=== PATIENT | female | born 1985 | race Caucasian/White ===

== ENCOUNTER → 2017-03-14 15:30 | Outpatient (CLI) | payer BC, SELFPAY ==
--- NOTE | 2017-03-14 15:39 | US_ITS ---
US thyroid HISTORY: ITS.REASON: ENLARGED THYROID ORDERING PHYSICIAN: Rosaline Joseph PATIENT AGE: 31 years COMPARISON: None FINDINGS: Right lobe: The right lobe is enlarged and is heterogeneous in nature measuring 4.8 x 2.5 x 2.2 cm. There is a 1.8 cm solid-appearing nodule in the lower pole on the right slightly hyperechoic. Anterior to the right lobe there is a 2.6 x 1 cm area of decreased echogenicity lobular also in nature with peripheral blood flow and may be related to an enlarged lymph node. Left lobe: Enlarged at 4.7 x 2.5 x 2.4 cm with heterogeneous echogenicity. A 1.7 x 0.8 cm ill-defined nodules present in the mid pole of the left lobe with mixed echogenicity. In the upper pole there is a 1.2 cm isoechoic nodule Lobular 1.6 cm isoechoic area noted anterior to the left lobe and may be due to enlarged lymph node. The isthmus is somewhat thickened at 7 mm. IMPRESSION: Multinodular goiter as detailed above. There are bilateral thyroid nodules measuring up to 1.8 cm on the right and 7 cm on the left with probable enlarged lymph nodes inferior to the thyroid gland on both sides. Consider CT of the neck for further evaluation. Probably best to perform without contrast in case the patient would need radioactive iodine for diagnosis or treatment in the near future.
== END ==
PROVIDERS: Family Provider Nurse Practitioner Family; PCP Nurse Practitioner Family; Visit Provider Nurse Practitioner
DX: E04.9 Nontoxic goiter, unspecified (principal)
CPT/HCPCS: 76536

== ENCOUNTER → 2017-03-23 12:43 | Outpatient (CLI) | payer BC, SELFPAY ==
--- NOTE | 2017-03-23 12:47 | CT_ITS ---
CT soft tissue neck wo con INDICATION: Adenopathy, thyroid nodules, goiter, abnormal ultrasound ITS.REASON: THYROID NODULE,GOITER ORDERING PHYSICIAN: Rosaline Joseph PATIENT AGE: 31 years COMPARISON: Ultrasound of 03/14/2017 TECHNIQUE: Axial images are obtained without contrast. Sagittal and coronal reformatted images are reviewed as well. FINDINGS: There are scattered small lymph nodes along the inferior aspect of the parotid gland on both sides. There are scattered small cervical lymph nodes within the deep cervical chains on both sides and deep to the sternocleidomastoid bilaterally. The nodes measure up to 2 x 1.2 cm on the right and 1.8 x 1.3 cm on the left. Mild enlargement of the thyroid gland involving both lobes. The nodules are better delineated on ultrasound. There are small lymph nodes present in the superior mediastinum as seen on the ultrasound. These nodes measure up to 1.4 x 1.2 cm. There are multiple small nodes present. There is moderate mucosal thickening of the right maxillary sinus inferiorly and mild mucosal thickening left maxillary sinus. Mild ethmoid sinus mucosal thickening also noted. IMPRESSION: 1. Mild cervical and superior mediastinal adenopathy as described above. 2. Enlarged thyroid gland. 3. Paranasal sinus disease
== END ==
PROVIDERS: Family Provider Nurse Practitioner Family; PCP Nurse Practitioner Family; Visit Provider Nurse Practitioner
DX: E04.1 Nontoxic single thyroid nodule (principal); E04.9 Nontoxic goiter, unspecified
CPT/HCPCS: 70490

== ENCOUNTER → 2017-05-04 08:09 | Outpatient (CLI) | payer BC, SELFPAY ==
[2017-05-06 17:44] LABS: Calcitonin <2.0 pg/mL (0.0-5.0)
== END ==
PROVIDERS: Visit Provider Otolaryngology
DX: E04.9 Nontoxic goiter, unspecified (principal)
CPT/HCPCS: 36415; 82308

== ENCOUNTER → 2017-05-12 12:36 | Outpatient (CLI) | payer BC, SELFPAY ==
--- NOTE | 2017-05-12 12:41 | US_ITS ---
US biopsy guidance, US organ site (thyroid), US thyroid HISTORY: Dominant thyroid nodule with mild cervical adenopathy ITS.REASON: thyroid nodule- dom left 1.5cm ORDERING PHYSICIAN: Duarte Rosario MD PATIENT AGE: 31 years COMPARISON: Ultrasound 03/14/2017 Prebiopsy ultrasound: 1.4 cm slightly hypoechoic nodule with questionable calcifications noted in the mid pole on the left TECHNIQUE: Following obtaining informed consent, using aseptic technique and local anesthesia with buffered lidocaine, fine-needle aspiration was performed of the nodule of interest using sonographic guidance. 3 passes were made into the nodule with a 25-gauge needle. Specimen was given to cytology. The patient tolerated the procedure well without evidence of immediate complications and left the ultrasound suite in stable condition. CYTOLOGY:Pending IMPRESSION: Uneventful ultrasound-guided fine-needle aspiration of left lobe thyroid gland with cytology pending
== END ==
PROVIDERS: Family Provider Nurse Practitioner Family; PCP Nurse Practitioner Family; Visit Provider Otolaryngology
DX: E04.9 Nontoxic goiter, unspecified (principal)
CPT/HCPCS: 10022; 76536; 76942

== ENCOUNTER → 2017-08-22 16:18 | Outpatient (CLI) | payer BC, SELFPAY ==
--- NOTE | 2017-08-22 16:29 | XR_ITS ---
XR foot LT min 3V HISTORY: ITS.REASON: LEFT HEEL PAIN ORDERING PHYSICIAN: Rosaline Joseph PATIENT AGE: 31 years COMPARISON: None FINDINGS: No fracture or dislocation. No lytic or blastic change. There is normal mineralization.. The joint spaces are well-preserved. No significant degenerative/arthritic changes. No erosive changes evident. There is a small calcaneal nonspecific measuring 7 mm. IMPRESSION: Negative, no acute finding
== END ==
PROVIDERS: PCP Family Medicine; Visit Provider Nurse Practitioner
DX: M79.672 Pain in left foot (principal)
CPT/HCPCS: 73630

== ENCOUNTER → 2017-12-24 10:40 | Outpatient (CLI) | payer BC, SELFPAY ==
--- NOTE | 2017-12-24 10:52 | XR_ITS ---
EXAM: XR lumbar spine min 4V HISTORY: ITS.REASON: ACUTE RIGHT SIDED LOW BACK PAIN WITH RIGHT SIDED SCIATICA ORDERING PHYSICIAN: Di Lopez PATIENT AGE: 32 years COMPARISON: None FINDINGS: Normal alignment. No fracture or dislocation. No lytic or blastic change. There is decrease in the L5-S1 disc space consistent with degenerative disc disease. Total left hip prosthesis is present. The SI joints have an unremarkable appearance. IMPRESSION: Mild degenerative disc disease L5-S1
== END ==
PROVIDERS: PCP Nurse Practitioner Family; Visit Provider Nurse Practitioner Family
DX: M54.41 Lumbago with sciatica, right side (principal)
CPT/HCPCS: 72110

== ENCOUNTER → 2018-01-20 15:46 | Outpatient (CLI) | payer BC, SELFPAY ==
--- NOTE | 2018-01-20 15:51 | MR_ITS ---
MR lumbar spine wo con HISTORY: Right-sided low back pain with sciatica going down the leg with numbness and tingling ITS.REASON: ACUTE RIGHT SIDED LOW BACK PAIN WITH SCIATICA ORDERING PHYSICIAN: Di Lopez PATIENT AGE: 32 years Comparison: 12/24/2017 TECHNIQUE: Standard multiplanar multiecho sequences are performed without contrast. 3-D MIP and myelographic images are also rendered and reviewed FINDINGS: There is normal alignment. The spinal cord ends at the T12-L1 level. L1-L2, L2-L3, L3-L4, and L4-L5 have an unremarkable appearance. There is some minimal facet and ligamentum flavum hypertrophy at L3-L4 and L4-L5. There is degenerative disc disease with decrease in the disc space at L5-S1 with bulging disc and a medium-sized right paracentral disc herniation with superior extrusion. Extruded portion of the disc measures 13 mm and is extruded superiorly compressing the S1 and S2 nerve root on the right also abutting the medial aspect of the left S1 nerve root. There is resultant canal stenosis from the herniated disc. IMPRESSION: Degenerative disc disease at L5-S1 L5-S1 with bulging disc and a medium-sized right paracentral disc herniation with superior extrusion. Extruded portion of the disc measures 13 mm and is extruded superiorly compressing the S1 and S2 nerve root on the right also abutting the medial aspect of the left S1 nerve root. There is resultant canal stenosis from the herniated disc.
== END ==
PROVIDERS: PCP Nurse Practitioner Family; Visit Provider Nurse Practitioner Family
DX: M54.41 Lumbago with sciatica, right side (principal)
CPT/HCPCS: 72148; 76376

== ENCOUNTER → 2018-02-07 08:24 | Outpatient (CLI) | payer BC, SELFPAY | PROVIDERS: PCP Nurse Practitioner Family; Visit Provider Orthopaedic Surgery | DX: Z01.818 Encounter for other preprocedural examination (principal); M54.5 Low back pain | CPT/HCPCS: 93005 ==

== ENCOUNTER → 2019-08-22 09:05 | Outpatient (CLI) | payer BC, SELFPAY ==
--- NOTE | 2019-08-22 09:14 | XR_ITS ---
PROCEDURE: XR HIP LT 2-3V W/PELVIS CLINICAL INDICATION: left HIP PAIN COMPARISON: [id number] HIP LT 2-3V W/PELVIS IF PERFOR from 07/11/[id number] soft tissue neck wo con from 03/23/2017 FINDINGS: Prior total hip replacement on the left with good alignment. There is some sclerosis at the acetabular roof and along the left aspect of the ilium inferiorly. There is a bony defect involving the left ilium laterally and could be due to prior bone harvesting site. Not significantly changed. There are minimal osteoarthritic changes of the right hip. No fracture or dislocation. Essure devices are noted IMPRESSION: Prior left hip replacement with chronic changes. No change with no acute finding Dictated by: Milton Sparrow MD 08/22/2019 14:58 Electronically signed by Milton Sparrow MD in [place] 08/22/2019 14:58
== END ==
PROVIDERS: PCP Nurse Practitioner; Visit Provider Nurse Practitioner
DX: M25.551 Pain in right hip (principal)
CPT/HCPCS: 73502

== ENCOUNTER → 2019-09-03 08:47 | Outpatient (CLI) | payer BC, SELFPAY ==
--- NOTE | 2019-09-03 08:53 | NM_ITS ---
PROCEDURE: NM BONE 3 PHASE CLINICAL INDICATION: LT HIP PAIN Left hip pain, status post hip replacement COMPARISON: XR HIP LT 2-3V W/PELVIS from 08/22/2019 TECHNIQUE: Dose: 25.4 mCi technetium MDP FINDINGS: Blood flow images show fairly symmetric activity to both hips with only slight increase in blood flow to the left hip on the composite blood flow view. Blood pool images show symmetric activity to both sides. Delayed images show show photopenic area in the region of the left femoral head and neck from the underlying metallic prosthesis. There is some increased activity in the subtrochanteric region on the AP images. This is not as intense as 1 would expect for underlying osteomyelitis and may only be postsurgical in nature. IMPRESSION: Status post left hip replacement. No convincing evidence of underlying infection or loosening Dictated by: Milton Sparrow MD 09/04/2019 10:16 Electronically signed by Milton Sparrow MD in [facility] 09/04/2019 10:16
--- NOTE | 2019-09-03 09:34 | HMH.ITSHM ---
Current Home Medications as stated by this patient Rosa Montes or field representative/health education. []meloxicam
== END ==
PROVIDERS: PCP Nurse Practitioner; Visit Provider Physician Assistant Surgical
DX: M25.552 Pain in left hip (principal); Z96.642 Presence of left artificial hip joint
CPT/HCPCS: 78315; A9503

== ENCOUNTER 2019-10-31 15:30 | Outpatient (RCR) | payer BC, SELFPAY ==
--- NOTE | 2019-09-05 09:45 | HMH.PTOPEV ---
PT Outpatient Evaluation Rehab PT Outpatient Evaluation Start: 09/05/19 09:05 Freq: Status: Active Protocol: Document 09/05/19 09:06 HARVEYMARCIAL (Rec: 09/05/19 09:45 FAISAL [id number]) Electronically Signed By Butch Gonzalez PT 09/05/19 09:06 Outpatient Therapy Subjective History Subjective History This is the initial Physical Therapy evaluation for Rosa Montes. Pt is a 33 y/o female referred to PT for c/o L hip pain and buckling . 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 Pt reports intermittant issues of hip pain and snapping hip which have resolved on their own normally. Pt reprots this bout of hip issues began ~ 1 month ago w/ insidious onset. Pt reports her L hip and lower extremity have begun gicing out and buckling. Pt also reports that she will get symptoms of paresthesia in leg prior to buckling. Pt does not recognize any aggravating factors, or this that cause buckling to happen. Pt reports this happens randomnly. Chief Complaint Pain,Gives out/Unstable, Paresthesia,Weakness Symptom Type Throb,Sharp,Numbness,Tingling Symptoms Relieved By Nothing Symptoms Aggravated By Physical Activity,Twisting Prior Functional Limitations None Level of pain today (0-10) 0 Pain scale - at its best (0-10) 0 Pain scale - at its worst (0-10) 8 Hip/Knee Eval Gait Observation General Gait Pattern Observation Antalgic Gait Palpation Tenderness left Hip Palpation Findings Tenderness MMT Hip Flexion Strength Grade 4- Good- Hip Abduction Strength Grade 4- Good- Hip Adduction Strength Grade 4- Good- Hip Extension Strength Grade 4- Good- Hip External Rotation Strength Grade 4- Good- Hip Internal Rotation Strength Grade 4- Good- Knee Strength Reason Not Measured WFL Special Tests Hip Brett Test Positive Left Hip Piriformis Test Positive Left Outpatient Therapy Assessment Impairments Problems/Impairmments Palpation Tenderness,Impaired Walking,Impaired Squatting,
== END 2019-10-31 15:35 | disposition home or self-care (01) ==
LOC: PT 15:30
PROVIDERS: PCP Nurse Practitioner; Visit Provider Nurse Practitioner
DX: M25.552 Pain in left hip (principal)
CPT/HCPCS: 97010; 97014; 97110; 97163; G0283

== ENCOUNTER → 2019-11-06 15:59 | Outpatient (CLI) | payer BC, SELFPAY ==
--- NOTE | 2019-11-06 16:01 | MR_ITS ---
PROCEDURE: MR HIP LT WO CON CLINICAL INDICATION: UNSTABLE LEFT HIP,LEFT HIP PAIN COMPARISON: No exams were available for comparison TECHNIQUE: Routine multiplanar multi echo sequences are performed without gadolinium enhancement. FINDINGS: There is a total left hip prosthesis present with considerable artifact from the prosthesis obscuring evaluation of the left hip.. Cannot adequately evaluate the left hip due to the artifact. No surrounding muscular mass or abnormal fluid collection is evident. Incidental note is made an area of decreased T1 and increased T2 signal along the superior and medial aspect of the right acetabulum anteriorly. This area measures approximately 2 cm. IMPRESSION: 1. Status post left hip replacement with considerable artifact from the prosthesis obscuring evaluation of the left hip. 2. 2 cm area of focal abnormal signal intensity of the roof of the acetabulum anteriorly on the right. This is nonspecific and could be posttraumatic/inflammatory, infectious, or neoplastic. CT of the pelvis may provide further evaluation of this anomaly and may better evaluate the left hip. There will undoubtedly be artifact from the hip prosthesis but should be less so than when compared to the MRI. Dictated by: Milton Sparrow MD 11/09/2019 10:41 Milton Sparrow MD in [place] 11/09/2019 10:41
== END ==
PROVIDERS: PCP Nurse Practitioner; Visit Provider Nurse Practitioner Family
DX: M25.352 Other instability, left hip (principal); M25.552 Pain in left hip; Z96.642 Presence of left artificial hip joint
CPT/HCPCS: 73721

== ENCOUNTER → 2019-11-23 07:20 | Outpatient (CLI) | payer BC, SELFPAY ==
--- NOTE | 2019-11-23 07:26 | CT_ITS ---
PROCEDURE: CT PELVIS WO CON CLINICAL INDICATION: STATUS POST L HIP REPLACEMENT, ABN MRI, HIP PAIN COMPARISON: MR MR HIP LT WO CON from 11/06/2019 TECHNIQUE: Axial images obtained with sagittal and coronal reformats. All CT scans at the facility use one or more dose reduction, viz: automated exposure control, ma/kV adjustment per patient size (including targeted exams where dose is matched to indication, i.e. head), or iterative reconstruction technique. FINDINGS: Status post total left hip replacement. There is good alignment without obvious evidence of orthopedic complication. Recent MRI demonstrated abnormal signal intensity within the right acetabular roof anteriorly.. There is an area of sclerosis involving the anterior aspect of the acetabular roof which may account for the area of increased signal intensity on the MRI and may be related to some developing osteoarthritic changes with bone marrow edema manifested on the MRI. No obvious lytic lesions apparent. A small bone island is present in the right femoral head. A defect is present in the left ilium presumed to be from a bone harvesting site. Please correlate with surgical history. Bilateral Essure devices are present. IMPRESSION: 1. Status post total left hip replacement with no acute finding evident. The prosthesis is in good position. No evidence of prosthesis loosening or malalignment. 2. Small area of sclerosis involving the acetabular roof anteriorly on the right which may account for the MRI finding and may be due to developing osteoarthritic change with some bone marrow edema on the MRI. Follow-up suggested to confirm stability Dictated by: Milton Sparrow MD 11/24/2019 10:33 Milton Sparrow MD in [facility] 11/24/2019 10:33
== END ==
PROVIDERS: PCP Nurse Practitioner Family; Visit Provider Nurse Practitioner
DX: R93.89 Abnormal findings on diagnostic imaging of other specified body structures (principal); M25.552 Pain in left hip; M25.352 Other instability, left hip; Z96.642 Presence of left artificial hip joint
CPT/HCPCS: 72192

== ENCOUNTER → 2020-06-20 08:01 | Outpatient (CLI) | payer BC, SELFPAY ==
--- NOTE | 2020-06-20 08:12 | XR_ITS ---
PROCEDURE: XR HIP RT 2-3V W/PELVIS CLINICAL INDICATION: RT HIP PAIN COMPARISON: CR [id number] HIP LT 2-3V W/PELVIS IF PERFOR from 07/11/2015 CR XR HIP LT 2-3V W/PELVIS from 08/22/2019 FINDINGS: No acute fracture or dislocation. No lytic or blastic change of the right hip. AP view of the pelvis shows a total left hip prosthesis. Defect is present along the left iliac crest similar to the previous exam and may be due to a surgical defect. Please correlate with patient's history. This is unchanged since 07/11/2015. Bilateral Essure devices are present. IMPRESSION: No acute findings. Dictated by: Milton Sparrow MD 06/20/2020 09:14 Milton Sparrow MD in [place] 06/20/2020 09:14
== END ==
PROVIDERS: PCP Nurse Practitioner Family; Visit Provider Nurse Practitioner Family
DX: M25.551 Pain in right hip (principal)
CPT/HCPCS: 73502

== ENCOUNTER → 2021-03-23 11:06 | Outpatient (CLI) | payer BC, SELFPAY | PROVIDERS: PCP Nurse Practitioner Family; Visit Provider Nurse Practitioner | DX: Z20.822 Contact with and (suspected) exposure to COVID-19 (principal) | CPT/HCPCS: C9803; U0003; U0005 ==

== ENCOUNTER → 2021-08-12 10:53 | Outpatient (CLI) | payer BC, SELFPAY | PROVIDERS: PCP Nurse Practitioner Family; Visit Provider Nurse Practitioner Family | DX: Z20.822 Contact with and (suspected) exposure to COVID-19 (principal); U07.1 COVID-19 | CPT/HCPCS: 87275; 87276; C9803; U0003; U0005 ==

== ENCOUNTER → 2022-01-11 07:48 | Outpatient (CLI) | payer BC, SELFPAY ==
--- NOTE | 2022-01-11 08:01 | ECG_ITS ---
APPROVED REPORT Exam: Resting ECG HR:51 bpm ECG Measurements Heart Rate 51 AXES UT 147 P 5 QRSd 86 QRS 42 QT 405 T 23 QTc 382 Conclusion SINUS BRADYCARDIA BORDERLINE ECG UNCONFIRMED REPORT Electronically signed by : Ruddy Orellana MD 01/11/2022 21:40:33
--- NOTE | 2022-01-11 08:26 | XR_ITS ---
FINAL REPORT TECHNIQUE: Chest PA & Lateral CLINICAL HISTORY: OBESITY FINDINGS: 2 views of the chest were performed. The heart size is normal. The mediastinum is within normal limits. There is no acute cardiopulmonary process. There are no pleural effusions. There is no pneumothorax. The bony thorax appears intact. IMPRESSION: No acute cardiopulmonary process. Reviewed, Interpreted and Dictated by Jose Newberry MD Transcribed by Alyssa Dorman Authenticated and [facility]
[2022-01-11 08:34] LABS: Basophils # 0.1 K/mm3 (0-0.2); Basophils % 0.7 % (0.1-2.0); Eosinophils # 0.2 K/mm3 (0.0-0.4); Eosinophils % 2.1 % (0.1-12.0); Hematocrit 45.2 % (37.0-47.0); Hemoglobin 15.1 g/dL (12.2-16.2); Lymphocytes # 2.3 K/mm3 (0.7-4.5); Lymphocytes % 26.8 % (10-50); Mean Corpuscular HGB Conc 33.4 g/dL (31.8-35.4); Mean Corpuscular Hemoglobin 29.9 pg (27.0-31.2); Mean Corpuscular Volume 89.3 fl (81-99); Mean Platelet Volume 6.8 fl (7.4-10.4); Monocytes # 0.4 K/mm3 (0.1-1.0); Monocytes % 5.1 % (1.7-9.3); Neutrophils # 5.6 K/mm3 (1.8-7.8); Neutrophils % 65.4 % (37.0-80.0); Platelet Count 363 K/mm3 (142-424); Red Blood Count 5.06 M/mm3 (4.20-5.40); Red Cell Distribution Width 13.3 % (11.5-17.5); White Blood Count 8.6 K/mm3 (4.8-10.8)
[2022-01-11 08:46] LABS: Hemoglobin A1C 5.6 % (4.0-6.0)
[2022-01-11 09:15] LABS: Alanine Aminotransferase 23 U/L (12-78); Albumin Level 4.5 g/dl (3.5-5.0); Albumin/Globulin Ratio 1.5 (1.1-1.8); Alkaline Phosphatase 96 U/L (38-126); Anion Gap 17.3 mEq/L (5-15); Aspartate Amino Transferase 23 U/L (14-36); Bilirubin,Total 0.8 mg/dl (0.2-1.3); Blood Urea Nitrogen 13 mg/dl (7-17); Calcium 9.7 mg/dl (8.4-10.2); Carbon Dioxide 28 mmol/L (22.0-30.0); Chloride 98 mmol/L (98-107); Chol/HDL Ratio 4.1 (1-3.5); Cholesterol 199 mg/dl (140-200); Estimated Glomerular Filt Rate 94 ml/min (>60); GFR (African American) 113 ML/MIN (>60); Glucose 108 mg/dl (74-100); HDL Cholesterol 48 mg/dl (40-60); Potassium 4.3 mmoL/L (3.5-5.1); Sodium 139 mmol/L (136-145); Total Protein,Serum 7.5 g/dl (6.3-8.2); Triglycerides 132 mg/dl (30-150); VLDL Cholesterol 26 mg/dL (0-40)
[2022-01-11 09:31] LABS: Direct LDL Cholesterol 123.85 mg/dL (100-129)
[2022-01-11 09:32] LABS: 25-OH Vitamin D, Total 30.5 ng/mL (30-100); Intact Parathyroid Hormone 43.2 pg/mL (7.5-53.5)
[2022-01-11 11:22] LABS: Iron 117 ug/dL (37-170)
[2022-01-11 11:32] LABS: Total Iron Binding Capacity 337 ug/dL (265-497)
[2022-01-11 11:58] LABS: Ferritin 59.5 ng/ml (6.24-137)
[2022-01-14 05:09] LABS: Vitamin B1 159.5 nmol/L (66.5-200.0)
[2022-01-17 14:51] LABS: Methylmalonic Acid 152 nmol/L (0-378)
[2022-01-18 14:21] LABS: Vitamin A 38.1 ug/dL (18.9-57.3)
[2022-01-19 01:10] LABS: Vitamin E Alpha Tocopherol 9.9 mg/L (5.9-19.4); Vitamin E Gamma Tocopherol 2.1 mg/L (0.7-4.9)
== END ==
PROVIDERS: PCP Nurse Practitioner Family; Visit Provider Nurse Practitioner Family
DX: E66.9 Obesity, unspecified (principal); Z68.42 Body mass index [BMI] 45.0-49.9, adult
CPT/HCPCS: 36415; 71046; 80053; 80061; 82131; 82306; 82728; 82746; 83036; 83540; 83550; 83970; 84425; 84443; 84446; 84590; 85025; 93005

== ENCOUNTER → 2022-04-08 11:41 | Outpatient (CLI) | payer BC, SELFPAY ==
--- NOTE | 2022-04-08 11:47 | XR_ITS ---
FINAL REPORT CLINICAL HISTORY: PAIN OF FOOT AND JOINTS FINDINGS: LEFT ANKLE Three views of the left ankle were obtained. There is no acute fracture or dislocation. The joint spaces and mortise are intact. There is a plantar calcaneal spur. There is no soft tissue abnormality. IMPRESSION: No acute bony abnormality. Reviewed, Interpreted and Dictated by Julio Poole III, MD Transcribed by Alyssa Dorman Authenticated and [facility]
== END ==
LOC: RAD 11:42
PROVIDERS: PCP Nurse Practitioner Family; Visit Provider Nurse Practitioner Family
DX: M25.572 Pain in left ankle and joints of left foot (principal)
CPT/HCPCS: 73610

== ENCOUNTER → 2022-12-13 12:55 | Outpatient (CLI) | payer BC, SELFPAY | PROVIDERS: PCP Nurse Practitioner Obstetrics & Gynecology; Visit Provider Nurse Practitioner Obstetrics & Gynecology | DX: N76.4 Abscess of vulva (principal) | CPT/HCPCS: 87070; 87205 ==

== ENCOUNTER 2023-01-03 13:16 | Emergency (ER) | payer BC, SELFPAY ==
[2023-01-03 13:31] VITALS: BP 158/104; PULSE 50; RESP 16; TEMP 36.6; O2SAT 96; BMI 43.7
--- NOTE | 2023-01-03 13:43 | CT_ITS ---
FINAL REPORT CLINICAL HISTORY: severe low back pain rad down R leg COMPARISON: None FINDINGS: Axial imaging of the lumbar spine was obtained without contrast. Sagittal and coronal reformatted images were also obtained and reviewed.This study was performed with techniques to keep radiation doses as low as reasonably achievable (ALARA). Individualized dose reduction techniques using automated exposure control or adjustment of mA and/or kV according to the patient's size were employed. There is no fracture. The vertebral alignment is normal. There is disc space narrowing at L5-S1. There is no evidence of significant central canal stenosis. L1-2: No evidence of significant central canal stenosis or neuroforaminal narrowing. L2-3: No evidence of significant central canal stenosis or neuroforaminal narrowing. L3-4: Annular disc bulge. No evidence of significant central canal stenosis or neuroforaminal narrowing. L4-5: Annular disc bulge. No evidence of significant central canal stenosis or neuroforaminal narrowing. L5-S1: Annular disc bulge, facet arthropathy, and osteophytes. Central disc protrusion extends beyond osteophytes and contacts the S1 nerve roots. Moderate left neural foraminal narrowing. IMPRESSION: Multilevel degenerative change without acute bony abnormality, most pronounced at L5-S1. Reviewed, Interpreted and Dictated by Julio Poole III, MD Transcribed by Lulu Garcia Authenticated and . [facility]
--- NOTE | 2023-01-03 13:49 | HMH.EDGENADL ---
Discharge Plan Disposition Patient Disposition: Home, Self-Care Condition: Good Prescriptions Prescriptions: New naproxen 500 mg tablet 500 mg PO BID PRN (Reason: pain) Qty: 20 0RF methocarbamol 750 mg tablet 750 mg PO Q8H PRN (Reason: pain) Qty: 20 0RF lidocaine [Lidoderm] 5 % adhesive patch,medicated 1 patch topical DAILY Qty: 15 0RF Rx Instructions: leave on most painful area for up to 12 hrs prednisone 50 mg tablet 50 mg PO DAILY 5 Days Qty: 5 0RF No Action cholecalciferol (vitamin D3) 50 mcg (2,000 unit) capsule 50 mcg PO DAILY Referrals Follow up/Referrals: Neeta Maldonado APRN [Primary Care Provider] - See instructions Activity Restrictions/Add. Instructions Additional Instructions/Restrictions: You were evaluated in the emergency department today. Please rock picker your prescriptions at the pharmacy and take them as prescribed. Follow-up with your primary care provider over the next 3 days. It may be beneficial for them to refer you to physical therapy and/or a spine surgeon. Return to the emergency department for any new or worsening symptoms. Clinical Impressions Clinical Impression: Low back pain Qualifiers: Chronicity: acute Back pain laterality: right Sciatica presence: with sciatica Sciatica laterality: sciatica of right side Qualified Code(s): M54.41 - Lumbago with sciatica, right side Instructions Patient Instructions: DI for Acute Pain -- Adult, DI for Back Pain With Sciatica Discharge ED Provider: Brittney Scott General Adult HPI General Chief complaint: PAIN Stated complaint: back pain, no accident Time Seen by Provider: 01/03/23 13:40 Mode of Arrival: Ambulatory Source of Information: Patient Limitations: No Limitations Description of Symptoms (Recalled from ER Triage Doc. by RN): 37 yo F presents to ED with c/o back pain. pt reports that she went to sit down on her couch, and felt something pop. pt reports that she does have hx of bulging discs. pt radiating down into right leg. pts reports she did see her pcp and a chiropractor today with no relief. History of Present Illness HPI narrative: This patient is a 37-year-old female with a history of chronic low back pain status post discectomy in the past presenting to the emergency department for evaluation of acute worsening of pain. She states that she sat down on her couch yesterday and felt a pop. The pain is going down her right leg. She describes it as sharp and stabbing. She states that it is severe and constant. Nothing seems to make it better or worse. She saw her primary care provider and her chiropractor today without any improvement. She denies any fevers, chills, incontinence, saddle anesthesia, retention, or other concerns. She denies any history of IV drug use or other issues. Related Data Home Medications Medication Instructions Recorded Confirmed cholecalciferol (vitamin D3) 50 50 mcg PO DAILY 12/13/22 12/13/22 mcg (2,000 unit) capsule Previous Rx's Medication Instructions Recorded lidocaine 5 % topical patch 1 patch topical DAILY #15 ea 01/03/23 (Lidoderm) methocarbamol 750 mg tablet 750 mg PO Q8H PRN pain #20 tabs 01/03/23 naproxen 500 mg tablet 500 mg PO BID PRN pain #20 tabs 01/03/23 prednisone 50 mg tablet 50 mg PO DAILY 5 days #5 tabs 01/03/23 Allergies Allergy/AdvReac Type Severity Reaction Status Date / Time Penicillins [PENICILLINS] Allergy Unknown Verified 12/13/22 10:37 [facility] Disclaimer: The information contained in this section may have been updated after the patient was seen, as this information can be updated by other users. Medical History Bulging disc Surgical History History of left hip replacement Family History Other Cancer Diabetes Heart attack Social History (Revie
[2023-01-03 14:12] LABS: Microscopic, Urine URINE MICROSCOPIC (MICROSCOPIC)
[2023-01-03 14:15] LABS: Bilirubin,Urine Negative (Negative); Blood, Urine 3+ (Negative); Glucose,Urine (UA) Negative (Negative); Ketones,Urine Negative (Negative); Leukocyte Esterase,Urine Negative (Negative); Nitrate,Urine Negative (Negative); Protein,Urine Negative (Negative); Specific Gravity, Urine 1.025 (1.005-1.030); Urobilinogen,Urine 0.2 EU/dl (0.2)
[2023-01-03 14:17] VITALS: BP 151/93; PULSE 64; O2SAT 99
--- NOTE | 2023-01-03 14:17 | PC.NURSE ---
bladder scan showed 3 mL
[2023-01-03 14:27] LABS: RBC,Urine 20-50 #/hpf (0-3); Squamous Epithelial Cell,Urine Occasional #/hpf (0-5)
[2023-01-03 14:28] LABS: Appearance,Urine Cloudy (Clear); Color,Urine Dark Yellow (Yellow)
[2023-01-03 14:31] VITALS: BP 134/79; PULSE 56; O2SAT 94
[2023-01-03 14:41] LABS: Urine Pregnancy, HCG Qual. Negative (Negative)
--- NOTE | 2023-01-03 14:50 | PC.NURSE ---
pt going to scan via wheelchair
[2023-01-03 16:16] VITALS: BP 134/79; PULSE 56; RESP 16; TEMP 36.6
== END 2023-01-03 16:22 | disposition home or self-care (01) ==
PROVIDERS: Emergency Provider Emergency Medicine; PCP Nurse Practitioner Family
DX: M54.41 Lumbago with sciatica, right side (principal); F17.210 Nicotine dependence, cigarettes, uncomplicated; E66.9 Obesity, unspecified
CPT/HCPCS: 72131; 81001; 81025; 96372; 99284

== ENCOUNTER 2023-02-22 08:30 | Outpatient (RCR) | payer BC, SELFPAY | END 2023-02-22 09:30 | disposition home or self-care (01) | LOC: PT 08:30 | PROVIDERS: PCP Nurse Practitioner Family; Visit Provider Orthopaedic Surgery | DX: M51.26 Other intervertebral disc displacement, lumbar region (principal); M54.50 Low back pain, unspecified | CPT/HCPCS: 97010; 97014; 97110; 97140; 97163; 97530; G0283 ==

== ENCOUNTER 2023-08-22 10:00 | Outpatient (RCR) | payer BC, SELFPAY | END 2023-08-22 11:10 | disposition home or self-care (01) | LOC: PT 10:00 | PROVIDERS: Visit Provider Nurse Practitioner | DX: M54.41 Lumbago with sciatica, right side (principal); M54.42 Lumbago with sciatica, left side; M51.36 Other intervertebral disc degeneration, lumbar region | CPT/HCPCS: 97010; 97014; 97110; 97140; 97163; G0283 ==

== ENCOUNTER 2023-09-14 11:06 | Outpatient (POV) | payer BC, SELFPAY ==
--- NOTE | 2023-09-14 11:17 | EXP.PAIN.OV ---
HPI Data of Consult Patient: new to practice Consult date: 09/14/23 Requesting Physician: Brittney Maldonado APRN Primary Care Provider: Di Lopez APRN Consult Narrative Reason for consult: Low back pain, right leg pain History of present illness: Ms. Montes is a 37 year old female who presents today as a new patient. She is a referral from Danica Lopez's office. Today she rates her pain a 2 out of 10 however states as the day goes on the pain will go up much worse show 5 out of 10. Patient states the pain is all in her low back with radiating symptoms into her right leg with numbness and tingling. Patient states that she has had chronic low back pain that started about 4 years ago that ended up requiring a discectomy by Dr. Andres Maldonado in [place]. She states then around January of last year she ended up with another herniated disc and pain radiating down her right leg. Patient states that she did see Dr. Maldonado BPM and he had discussed the possibility of a lumbar fusion however she states she wants to do conservative treatment first. She does state that he ended up doing a lumbar epidural in February 2023 that did last up until June of this year giving him 100% relief. Patient states that she is interested in an additional injections. She states when that injection was working she had significant improved function with overall decreased pain. Patient states she has tried [id number] Tylenol and ibuprofen along with heat and ice and topicals with some improvement. Patient did complete 6 weeks physical therapy and stated that that helped and she does continue to do at home stretching and exercise. Patient does also state between all of this she did actually have a outbreak of shingles and that it is completely healed however she still has continued numbness where it was around her breast and radiating across her mid back. Patient is currently managed with [place] 5 mg from her PCP. Her Ryder has been reviewed and is appropriate. CC: Brittney Maldonado APRN [facility] Disclaimer: The information contained in this section may have been updated after the patient was seen, as this information can be updated by other users. Medical History Bulging disc Surgical History History of left hip replacement Family History Other Cancer Diabetes Heart attack Social History Smoking Status: Current every day smoker alcohol intake: never substance use type: denies use current occupational status: employed Travel in the last 8 weeks: None Review of Systems Review of Systems Review of systems:: pertinent systems reviewed and negative unless documented below Review of systems (narrative): Review of Systems: General: No recent weight changes, no fever, no sleep disturbances Respiratory: No cough, no shortness of air, no recurring pulmonary infections Cardiovascular/peripheral vascular: No chest pain, no palpitations, no edema, no shortness of breath Gastrointestinal: No new onset incontinence, normal bowel movements reported Genitourinary: No new onset incontinence Musculoskeletal: Low back pain, right leg pain Psychiatric: [Normal mood/affect] Neurological: [Denies weakness in extremities], [denies balance issues] Meds Home Medications and Allergies Home Medications Medication Instructions Recorded Confirmed Type cholecalciferol (vitamin D3) 50 50 mcg PO DAILY 12/13/22 04/19/23 History mcg (2,000 unit) capsule naproxen 500 mg tablet 500 mg PO BID PRN pain #20 tabs 01/03/23 04/19/23 Rx New Prescriptions to Start Prescriptions: Allergies Allergy/AdvReac Type Severity Reaction Status Date / Time Penicillins [PENICILLINS] Allergy Unknown Verified 04/19/23 10:22 Objective Narrative: Physical Exam: General: Alert and oriented x3, no acute distress, pleasant and cooperative Lungs: Respirations even and unlabored, symmetrical chest expansion Eyes: PERRL Musculoskeletal: Flexion and extension of lumbar [spine] somewhat guarded secondary to pain, positive right leg raise with decreased sensation light touch and decreased reflexes Neurological: Speech clear, no gross sensory deficit Additional findings Additional findings: FINDINGS: Axial imaging of the lumbar spine was obtained without contrast. Sagittal and coronal reformatted images were also obtained and reviewed.This study was performed with techniques to keep radiation doses as low as reasonably achievable (ALARA). Individualized dose reduction techniques using automated exposure control or adjustment of mA and/or kV according to the patient's size were employed. There is no fracture. The vertebral alignment is normal. There is disc space narrowing at L5-S1. There is no evidence of significant central canal stenosis. L1-2: No evidence of significant central canal stenosis or neuroforaminal narrowing. L2-3: No evidence of significant central canal stenosis or neuroforaminal narrowing. L3-4: Annular disc bulge. No evidence of significant central canal stenosis or neuroforaminal narrowing. L4-5: Annular disc bulge. No evidence of significant central canal stenosis or neuroforaminal narrowing. L5-S1: Annular disc bulge, facet arthropathy, and osteophytes. Central disc protrusion extends beyond osteophytes and contacts the S1 nerve roots. Moderate left neural foraminal narrowing. IMPRESSION: Multilevel degenerative change without acute bony abnormality, most pronounced at L5-S1. Reviewed, Interpreted and Dictated by Julio Poole III, MD Transcribed by Lulu Garcia Authenticated and . [facility] Assessment and Plan *Assessment and plan (1) Degenerative disc disease, lumbar: Status: Acute Category: Medical Code(s): M51.36 - Other intervertebral disc degeneration, lumbar region (2) Lumbar radiculopathy: Status: Acute Category: Medical Code(s): M54.16 - Radiculopathy, lumbar region (3) Lumbar nerve root impingement: Status: Acute Category: Medical Code(s): M54.16 - Radiculopathy, lumbar region Plan Patient is experiencing significant pain throughout her low back with radiating symptoms down her entire right extremity related to a nerve root impingement. Patient has had a lumbar epidural in the past that did provide 100% relief lasting approximately 4 months and did get improved function. I have discussed with patient that she may benefit from repeat lumbar epidural steroid injection. Risk and benefits were discussed with the patient and she would like to proceed forward with this plan of care. Patient is not on any blood thinners. Patient has tried and failed conservative treatment including completion of physical therapy and continued at home stretching exercise over the last 6 weeks. We will submit to insurance for the lumbar epidural steroid injection L5-S1 under fluoroscopy. Patient did have a positive right leg raise with decreased sensation light touch and decreased reflexes. I will also order the patient a compounded cream. Patient has been instructed to contact the clinic with any concerns before the next appointment. Dr. Keyes has reviewed this note and agrees with this plan of care. This note was dictated using voice recognition software and make contain errors or omissions.
[2023-09-14 12:07] VITALS: BP 121/86; PULSE 68; RESP 18; O2SAT 96; BMI 42.5
== END 2023-09-14 23:59 | disposition home or self-care (01) ==
LOC: SC.PAIN 11:07
PROVIDERS: PCP Nurse Practitioner Family; Visit Provider Nurse Practitioner Family
DX: M51.36 Other intervertebral disc degeneration, lumbar region (principal); M54.16 Radiculopathy, lumbar region; M54.50 Low back pain, unspecified
CPT/HCPCS: 99202; G0463

== ENCOUNTER 2023-10-18 09:42 | Day surgery (SDC) | payer BC, SELFPAY ==
[2023-10-18 10:07] VITALS: BP 128/79; PULSE 66; RESP 16; TEMP 36.5; O2SAT 98; BMI 41.5
[2023-10-18 10:41] VITALS: BP 152/77; PULSE 50; RESP 18; O2SAT 98
--- NOTE | 2023-10-18 10:41 | P.PCN_ITS ---
Procedure Date: 10/18/23 Time: 10:30 Anesthesiologist:: Tony Coleman CRNA Complications:: None Pre-procedure Diagnosis:: Degenerative disc lumbar spine multilevels. Lumbar radiculopathy. Post-procedure Diagnosis:: Same. Indications for Procedure:: Patient is a pleasant 37-year-old female comes our clinic today for lumbar epidural steroid injections at L5-S1 level. Patient describes low back pain as constant, dull, aching. Patient also reports bilateral hip and leg radicular symptoms at times. Patient had lumbar epidural steroid injection at a different facility in February. She has been doing very well since. She rates her pain 5/10. Procedure Details:: Procedure: Lumbar epidural steroid injection under fluoroscopy Informed consent was obtained and the risks and benefits of the procedure were explained to the patient. The patient was taken to the procedure room and noninvasive monitors placed, including noninvasive blood pressure cuff and pulse oximeter. The back was viewed using C-arm Fluoroscopy and prepped using Chl oraprep as a cleansing solution and the L5-S1 interspace was palpated. Skin and subcutaneous tissues were anesthetized using lidocaine 1.5% and a 25-gauge needle. After this, an 18-gauge Touhy epidural needle was placed into the L5-S1 interspace and advanced using fluoroscopic guidance and loss of resistance to air until the epidural space was encountered. After confirmation of needle placement in the epidural space, with dye, a solution containing normal saline, 3 mL and Depo-Medrol 80 mg were incrementally injected into the lumbar epidural space. The patient tolerated the procedure well with no complications. The patient was observed in the Pain Clinic and then discharged home neurologically intact. Plan and Disposition:: Patient was discharged without incident.
[2023-10-18] MEDS: methylPREDNISolone ACETATE 80MG/ML VIAL 80 MG (10:51)
[2023-10-18 10:53] VITALS: BP 137/68; PULSE 52; RESP 18; O2SAT 99
[2023-10-18 10:54] VITALS: BP 137/68; PULSE 52; RESP 18; O2SAT 99
== END 2023-10-18 10:41 | disposition home or self-care (01) ==
PROVIDERS: PCP Nurse Practitioner; Visit Provider Nurse Anesthetist, Certified Registered
DX: M51.16 Intervertebral disc disorders with radiculopathy, lumbar region (principal)
CPT/HCPCS: 62323; J1010

== ENCOUNTER 2024-10-03 14:29 | Outpatient (CLI) | payer BC, SELFPAY ==
--- NOTE | 2024-10-03 14:45 | MM_ITS ---
PROCEDURE INFORMATION: Exam: MG Bilateral Screening 3D Mammography Exam date and time: 10/03/2024 2:41 PM Age: 38 years old Clinical indication: Screening examination TECHNIQUE: Imaging protocol: Bilateral Screening tomosynthesis and 2D mammography including computer-aided detection (CAD) when performed. COMPARISON: No relevant prior studies available. Baseline FINDINGS: MAMMOGRAPHY: Breast composition: There are scattered areas of fibroglandular density. Mass: None. Architectural distortion: None. Calcifications: No suspicious calcifications. Asymmetric density: None. Skin thickening: None. Axillary adenopathy: None. IMPRESSION: No mammographic evidence of malignancy. Annual screening is recommended unless otherwise clinically indicated. ASSESSMENT: BI-RADS Category 1: Negative.
== END 2024-10-03 23:59 | disposition home or self-care (01) ==
LOC: RAD 14:29
PROVIDERS: PCP Nurse Practitioner; Visit Provider Nurse Practitioner Obstetrics & Gynecology
DX: Z12.31 Encounter for screening mammogram for malignant neoplasm of breast (principal); R92.323 Mammographic fibroglandular density, bilateral breasts
CPT/HCPCS: 77063; 77067

== ENCOUNTER 2025-01-18 07:41 | Outpatient (CLI) | payer BC, SELFPAY ==
--- OUTSIDE RECORDS SUMMARY | 2025-01-18 07:43 | XMS_ITS | Clinical Summary ---
Author Organization [facility] Address [address] [place] [address] Phone Care Team Providers Care Electrician Crane Maintenance Name Role Phone Joel JOSÉ, Neeta Unavailable Unavailable Joel GUSMAN, Andres Becerra Unavailable [phone] Reason for Visit and Chief Complaint Epidural Steroid Injection Problems Includes: Problems addressed during this encounter and other active Problems All Visits Onset Date Resolved Date Provider Condition S tatus Lower Back Pain 02/08/2018 Andres Maldonado MD Act bernice Last Documented On 8 10:46AM ; [facility] Plan of Treatment No Plan of Treatment Recorded Assessments Includes: Assessments from this encounter No Assessments Recorded Medical Equipment - Implanted Devices Includes: Current Devices No Medical Equipment Recorded Medications Includes: Medications discussed during this encounter and other current Medications Current Medications (continue as prescribed) Gabapentin 600 MG Oral Tablet 01/03/2023 Provider: Neeta Maldonado NP Diagnosis: Last Documented On 3 9:51AM By Rosi Merida ; [facility] Methocarbamol 750 MG Oral Tablet 01/03/2023 Provider : Diagnosis: Last Documented On 3 9:51AM By Rosi Merida ; [facility] Naproxen 500 MG Oral Tablet 01/03/2023 Provider: Diagnosis: Last Documented On 3 9:51AM By Rosi Merida ; [facility] Medications Administered Includes: Administered Medications from this encounter No Administered Medications Recorded Results Includes: Results discussed during this encounter No Results Recorded For Specified Dates History of Present Illness Includes: History of Present Illness from this encounter No History of Present Illness Recorded Social History No Social History Recorded - Smoking Status Unknown Medical History Includes: Medical History addressed during this encounter No Medical History Recorded Family History Includes: Family History addressed during this encounter No Family History Recorded Review of Systems Includes: Review of Systems from this encounter No Review of Systems Recorded Mental Status Includes: Mental Status from this encounter No Mental Status Recorded Functional Status Includes: Functional Status from this encounter No Functional Status Recorded Physical Exam Includes: Physical Exam from this encounter No Physical Exam Recorded Allergies Includes: Active Allergies Substance Type Reaction Onset Date Resolved Date Statu s Penicillins Allergy 02/08/2018 Active Last Documented On 4 9:57AM ; [facility] Encounters Encounter Provider Location Date Check-In Time Check-Out Time Diagnosis Epidural Steroid Injection Jasen Coleman CRNA [facility] 02/24/20 23 1:18PM 2:18PM Insurance Includes: Active Insurance Policies Plan Name Member ID Group # Subscriber Relationship Effect bernice Dates 1 - [facility] [id number] 1 [id number] Rosa Montes Self 03/07/2017 - Unknown Clinical Notes Includes: Clinical Notes from this encounter No Clinical Notes Recorded
--- OUTSIDE RECORDS SUMMARY | 2025-01-18 07:43 | XMS_ITS | Clinical Summary ---
Author Organization [facility] Address [address] [place] [address] Phone Care Team Providers Care Hotel Services Supervisor Name Role Phone Joel JOSÉ, Neeta Unavailable Unavailable Joel GUSMAN, Andres Becerra Unavailable [phone] Reason for Visit and Chief Complaint [Patient Encounter] Problems Includes: Problems addressed during this encounter and other active Problems All Visits Onset Date Resolved Date Provider Condition S tatus Lower Back Pain 02/08/2018 Andres Maldonado MD Act bernice Last Documented On 8 10:46AM ; [facility], [facility] Plan of Treatment Pending Tests Order Diagnosis Results Due Ordering P rovider Radiology - MRI MRI Lumbar Spine Overweight 01/19/23 Misha Dorman PA-C Last Documented On 3 2:11PM ; [facility] Assessments Includes: Assessments from this encounter No Assessments Recorded Medical Equipment - Implanted Devices Includes: Current Devices No Medical Equipment Recorded Medications Includes: Medications discussed during this encounter and other current Medications Current Medications (continue as prescribed) Gabapentin 600 MG Oral Tablet 01/03/2023 Provider: Neeta Maldonado NP Diagnosis: Last Documented On 3 9:51AM By Rosi Merida ; [facility] Methocarbamol 750 MG Oral Tablet 01/03/2023 Provider : Diagnosis: Last Documented On 3 9:51AM By Rosi Merida ; [facility] Naproxen 500 MG Oral Tablet 01/03/2023 Provider: Diagnosis: Last Documented On 3 9:51AM By Rosi [facility] Medications Administered Includes: Administered Medications from this [...] Active Last Documented On 4 9:57AM ; [facility] Encounters Encounter Provider Location Date Check-In Time Check-Out Time Diagnosis [Patient Encounter] Sesar Dorman PA-C 02/18/2023 8:31AM 11:59PM Insurance Includes: Active Insurance Policies Plan Name Member ID Group # Subscriber Relationship Effect bernice Dates 1 - [facility] [id number] 1 [id number] Rosa Montes Self 03/07/2017 - Unknown Clinical Notes Includes: Clinical Notes from this encounter No Clinical Notes Recorded
--- OUTSIDE RECORDS SUMMARY | 2025-01-18 07:43 | XMS_ITS | Clinical Summary ---
Author Organization [facility] , [facility] Address [address] [place] [address] Phone Care Team Providers Care Scale Adjuster Name Role Phone Joel JOSÉ, Neeta Unavailable Unavailable Joel GUSMAN, Andres Becerra Unavailable [phone] Reason for Visit and Chief Complaint The Chief Complaint is: low right side back pain Problems Includes: Problems addressed during this encounter and other active Problems Current Visit Onset Date Resolved Date Provider Almas jeffrey Status Lower Back Pain 02/08/2018 Andres Maldonado MD Act bernice Last Documented On 8 10:46AM ; [facility] Plan of Treatment Patient was seen by myself and Dr. Joel Dorman PA-C. Patient will follow up post surgery we discussed the conservative treatment with injections as well as surgery she wants to proceed with surgery plan will be for a right L5-S1 minimally invasive lumbar decompression and fusion. She understands all the benefits risk and alternatives surgery consents to proceed we will give her a note to stay off work. addendum dated January 18, 2023. Patient called back the office yesterday and wanted to not proceed with surgery presently and try the injection instead. We will set her up for an L5-S1 epidural follow-up with Dr. Maldonado 4 weeks after the injection she also did want to do some physical therapy which we will put that order in the chart for her and she can pick that up at her convenience here in the office - Last Documented On 01/24/2023 2:59PM ; [facility] Instructions to patient Lose weight Last Documented On 3 9:31AM ; [facility], [facility] Assessments Includes: Assessments from this encounter Findings - Overweight - Last Documented On 01/24/2023 2:59PM ; [facility] L5-S1 disc herniation - Last Documented On 01/24/2023 2:59PM ; [facility], [facility] Instructions Includes: Instructions from this encounter Instructions to patient Lose weight Last Documented On 3 9:31AM ; [facility] Medical Equipment - Implanted Devices Includes: Current Devices No Medical Equipment Recorded Medications Includes: Medications discussed during this encounter and other current Medications Current Medications (continue as prescribed) Gabapentin 600 MG Oral Tablet 01/03/2023 Provider: Neeta Maldonado NP Diagnosis: Last Documented On 3 9:51AM By Rosi Merida ; [facility] Methocarbamol 750 MG Oral Tablet 01/03/2023 Provider : Diagnosis: Last Documented On 3 9:51AM By Rosi Merida ; [facility] Naproxen 500 MG Oral Tablet 01/03/2023 Provider: Diagnosis: Last Documented On 3 9:51AM By Rosi Merida ; [facility], [facility] Past Medications on file Valium 5 MG Oral Tablet 01/05/2023 - 01/06/2023 Provid er: Andres Maldonado MD Diagnosis: take one hour prior to MRI. Do not drive on this Last Documented On 3 10:31AM By Andres Maldonado ; [facility] Medications Administered Includes: Administered Medications from this encounter No Administered Medications Recorded Vital Signs Includes: Vital Signs from this encounter Vital Name 01/13/2023 11:59A Height (in) 69 Weight (lb) 296 Body Mass Index 43.7 Body Surface Area 2.4 Last Documented: On 01/17/2023 11:59A M ; [facility], [facility] Results Includes: Results discussed during this encounter No Results Recorded For Specified Dates History of Present Illness Includes: History of Present Illness from this encounter GINNY Montes is a 37 year old female. - Symptoms nothing makes it better standing makes it worse. - Allergy list reviewed - Problem list reviewed - Medication list reviewed - Previous history of new onset pain 12/29/2022 Injury is not work related or an automotive accident. Was in the yard getting work done and fell and slipped on bottom/right side - Patient pain level from 1-10: 10 - Yes, previous treatment. Maggie patel - History of Chiropractic [place] [facility] Follow-up on her lumbar spine MRI. She has complaints of back and right leg pain she had a slip and fall injury in her yard on 12/29/2022 and noticed some back pain but then this became worse on 01/03/2023 when she sat down on the couch and she felt a pop. She is complaining of right leg pain that radiates down to the foot into the gastroc and right foot being numb. She had a previous history of having a L5-S1 disc herniation with the surgery [place] [address] Maldonado. She has a hard time trying to straighten up because of this most recent injury. She is using a cane to walk with she denies any bowel or bladder issues with it but she is having a hard time trying to have a bowel movement. No incontinence. Social History Description Last Updated Tobacco non-user 03/31/2023 Last Documented On 3 9:31AM ; [facility], [facility] No recent change in diet 03/31/2023 Last Documented On 3 9:31AM ; [facility], [facility] Not a current smoker. 03/31/2023 Last Documented On 3 9:31AM ; [facility] Caffeine use 01/05/2023 Last Documented On 3 9:31AM ; [facility], [facility] Not exercising regularly 01/05/2023 Last Documented On 3 9:31AM ; [facility], [facility] Not using alcohol 01/05/2023 Last Documented On 3 9:31AM ; [facility], [facility] Not using drugs 01/05/2023 Last Documented On 3 9:31AM ; [facility], [facility] No tobacco use 02/02/2018 Last Documented On 3 9:31AM ; [facility] Smoking status : Never smoker 02/02/2018 Last Documented On 3 9:31AM ; [facility], [facility] No recent change in diet 02/02/2018 Last Documented On 3 9:31AM ; [facility], [facility] Not a current smoker 02/02/2018 Last Documented On 3 9:31AM ; [facility], [facility] Procedures and Surgical History Includes: Procedures from this encounter Procedures Code Diagnosis Performing Provider Service L ocation Service Date use of tobacco assessment performed 1000F Last Documented On 3 9:31AM ; [facility], [facility] review of medications documented 1160F Last Documented On 3 9:31AM ; [facility], [facility] [place] [facility] [place] [id number] Last Documented On 3 9:31AM ; [facility] Surgical History Last Updated History of back surgery 01/05/2023 Last Documented On 3 9:31AM ; [facility] History of total hip replacement 023 Last Documented On 3 9:31AM ; [facility], [facility] Medical History Includes: Medical History addressed during this encounter No Medical History Recorded Family History Includes: Family History addressed during this encounter Description Last Updated Diabetes mellitus mother 01/05/2023 Last Documented On 3 9:31AM ; [facility] Family history of heart disease mother ~ father 01/05/2023 Last Documented On 3 9:31AM ; [facility], [facility] Review of Systems Includes: Review of Systems from this encounter Systemic: Not feeling tired and no recent weight loss. Recent weight gain. Head: Headache. No sinus pain. Eyes: No vision problems, no Cataracts, no Glasses/Contacts, and no Glaucoma. Otolaryngeal: No hearing loss and no tinnitus. Cardiovascular: No chest pain or discomfort, no palpitations, no Hypertension, and no High Cholesterol. Pulmonary: No daytime asthma symptoms and no chronic cough. No wheezing. Gastrointestinal: No heartburn and no abdominal pain. No Indigestion, no Acid Reflux, no Peptic Ulcer, no GI Stomach Bleed, and no Ulcers. Endocrine: Hot flashes and muscle weakness. No Diabetes. Hypothyroid. No Hyperthyroid. Hematologic: No easy bleeding, no tendency for easy bruising, and no Anemia. Musculoskeletal: Arthritis and lower back pain. No soft tissue swelling. Pain localized to one or more joints. Neurological: Dizziness. No convulsions and no numbness. Psychological: No anxiety. Emotional lability. No depression and no insomnia. Not crying for no reason. Skin: No dry skin. No Ulcers, no Scars, and no rash. Allergic and Immunologic: No complaint of seasonal allergic reaction. Mental Status Includes: Mental Status from this encounter Description No anxiety Functional Status Includes: Functional Status from this encounter No Functional Status Recorded Physical Exam Includes: Physical Exam from this encounter Allergies Includes: Active Allergies Substance Type Reaction Onset Date Resolved Date Statu s Penicillins Allergy 02/08/2018 Active Last Documented On 4 9:57AM ; [facility] Encounters Encounter Provider Location Date Check-In Time Check-Out Time Diagnosis Follow Up Andres Maldonado MD [facility] 3 9:18AM 10:05AM Overweight Insurance Includes: Active Insurance Policies Plan Name Member ID Group # Subscriber Relationship Effect bernice Dates 1 - [facility] [id number] 1 [id number] Rosa Montes Self 03/07/2017 - Unknown Clinical Notes Includes: Clinical Notes from this encounter * Progress note Date Encounter Last Documented by 01/13/2023 Follow Up Last documented on 01/24/2023; 2:59 PM, Andres Maldonado MD; [facility] Active Problems & Conditions - Lower Back Pain Chief Complaint The Chief Complaint is: Low right side back pain. Referred Here Referred by PCP. History of Present Illness Rosa Montes is a 37 year old female. - Symptoms nothing makes it better standing makes it worse. - Allergy list reviewed - Problem list reviewed - Medication list reviewed - Previous history of new onset pain 12/29/2022 Injury is not work related or an automotive accident. Was in the yard getting work done and fell and slipped on bottom/right side - Patient pain level from 1-10: 10 - Yes, previous treatment. Maggie woolums - History of Chiropractic [place] [facility] Follow-up on her lumbar spine MRI. She has complaints of back and right leg pain she had a slip and fall injury in her yard on 12/29/2022 and noticed some back pain but then this became worse on 01/03/2023 when she sat down on the couch and she felt a pop. She is complaining of right leg pain that radiates down to the foot into the gastroc and right foot being numb. She had a previous history of having a L5-S1 disc herniation with the surgery in [address] Maldonado. She has a hard time trying to straighten up because of this most recent injury. She is using a cane to walk with she denies any bowel or bladder issues with it but she is having a hard time trying to have a bowel movement. No incontinence. Current Medication - Gabapentin 600 MG Oral Tablet 30 days, 0 refills - Methocarbamol 750 MG Oral Tablet 7 days, 0 refills - Naproxen 500 MG Oral Tablet 10 days, 0 refills Past Medical/Surgical History Surgical: - Back surgery - Total hip replacement Social History Not a current smoker. Current diet: No recent change in diet. No recent change in diet. Caffeine use: Caffeine use. Tobacco use: No tobacco use and not a current smoker. Tobacco non-user. Smoking status: Never smoker. Alcohol: Not using alcohol. Drug Use: Not using drugs. Habits: Not exercising regularly. Allergies - Penicillins Family History Heart disease mother father Diabetes mellitus mother Review Of Systems Systemic: Not feeling tired and no recent weight loss. Recent weight gain. Head: Headache. No sinus pain. Eyes: No vision problems, no Cataracts, no Glasses/Contacts, and no Glaucoma. Otolaryngeal: No hearing loss and no tinnitus. Cardiovascular: No chest pain or discomfort, no palpitations, no Hypertension, and no High Cholesterol. Pulmonary: No daytime asthma symptoms and no chronic cough. No wheezing. Gastrointestinal: No heartburn and no abdominal pain. No Indigestion, no Acid Reflux, no Peptic Ulcer, no GI Stomach Bleed, and no Ulcers. Endocrine: Hot flashes and muscle weakness. No Diabetes. Hypothyroid. No Hyperthyroid. Hematologic: No easy bleeding, no tendency for easy bruising, and no Anemia. Musculoskeletal: Arthritis and lower back pain. No soft tissue swelling. Pain localized to one or more joints. Neurological: Dizziness. No convulsions and no numbness. Psychological: No anxiety. Emotional lability. No depression and no insomnia. Not crying for no reason. Skin: No dry skin. No Ulcers, no Scars, and no rash. Allergic and Immunologic: No complaint of seasonal allergic reaction. Physical Findings - Vitals taken 01/13/2023 11:59 am Height 69 in Weight 296 lbs Body Mass Index 43.7 kg/m2 Body Surface Area 2.4 m2 Patient is walking with a hunched over gait she is using a cane to walk with she has weakness on the right side with gastroc and EHL at 3 out of 5 in her gastroc 4 out of 5 with EHL Positive straight leg raise on the right Tests CT scan of the lumbar spine shows degenerative changes L5-S1 there may be a central disc protrusion MRI of the lumbar spine shows recurrent disc herniation at L5-S1 with some disc collapse Assessment - Overweight L5-S1 disc herniation Previous Tests Imaging: CT Scan: [facility] scan [facility]. Available previous imaging studies were reviewed Available previous history reviewed Counseling/Education - Lose weight Plan Patient was seen by myself and Dr. Joel Dorman PA-C. Patient will follow up post surgery we discussed the conservative treatment with injections as well as surgery she wants to proceed with surgery plan will be for a right L5-S1 minimally invasive lumbar decompression and fusion. She understands all the benefits risk and alternatives surgery consents to proceed we will give her a note to stay off work. addendum dated January 18, 2023. Patient called back the office yesterday and wanted to not proceed with surgery presently and try the injection instead. We will set her up for an L5-S1 epidural follow-up with Dr. Maldonado 4 weeks after the injection she also did want to do some physical therapy which we will put that order in the chart for her and she can pick that up at her convenience here in the office Notes This dictation was done with voice recognition software and may contain errors and omissions. Practice Management Use of tobacco assessment performed Review of medications documented. Care Team - Neeta Maldonado NP Health Reminders - Assess BMI satisfied 01/13/2023. - Assess Tobacco Use satisfied 02/02/2018. - Follow Up Plan BMI Management satisfied 01/13/2023.
--- OUTSIDE RECORDS SUMMARY | 2025-01-18 07:43 | XMS_ITS | Clinical Summary ---
Author Organization [facility] , [facility] Address [address] [place] [address] Phone Care Team Providers Care Personal Clothing Laundry Aide Name Role Phone Joel JOSÉ, Neeta Unavailable Unavailable Joel GUSMAN, Andres Becerra Unavailable [phone] Reason for Visit and Chief Complaint The Chief Complaint is: low right side back pain Problems Includes: Problems addressed during this encounter and other active Problems Current Visit Onset Date Resolved Date Provider Almas jeffrey Status Lower Back Pain 02/08/2018 Anrdes Maldonado MD Act bernice Last Documented On 8 10:46AM ; [facility], [facility] Plan of Treatment Instructions to patient Lose weight Last Documented On 4 9:57AM ; [facility], [facility] Assessments Includes: Assessments from this encounter Findings - Overweight - Last Documented On 04/13/2023 11:51AM ; [facility] L5-S1 disc herniation - Last Documented On 04/13/2023 11:51AM ; [facility], [facility] Instructions Includes: Instructions from this encounter Instructions to patient Lose weight Last Documented On 4 9:57AM ; [facility] Medical Equipment - Implanted Devices Includes: Current Devices No Medical Equipment Recorded Medications Includes: Medications discussed during this encounter and other current Medications Discontinued / Stopped on this date Andres Maldonado MD on 02/17/2018 Percocet 5-325MG Oral Tablet Provider: Andres Maldonado MD Diagnosis: Last Documented On 4 9:57AM By Rosi Merida ; [facility], [facility] Current Medications (continue as prescribed) Gabapentin 600 MG Oral Tablet 01/03/2023 Provider: Neeta Maldonado NP Diagnosis: Last Documented On 3 9:51AM By Rosi Merida ; [facility] Methocarbamol 750 MG Oral Tablet 01/03/2023 Provider : Diagnosis: Last Documented On 3 9:51AM By Rosi Merida ; [facility] Naproxen 500 MG Oral Tablet 01/03/2023 Provider: Diagnosis: Last Documented On 3 9:51AM By Rosi Merida ; [facility] Past Medications on file Valium 5 MG Oral Tablet 01/05/2023 - 01/06/2023 Provid er: Andres Maldonado MD Diagnosis: take one hour prior to MRI. Do not drive on this Last Documented On 3 10:31AM By Andres Maldonado ; [facility] Medications Administered Includes: Administered Medications from this encounter No Administered Medications Recorded Vital Signs Includes: Vital Signs from this encounter Vital Name 03/31/2023 09:59A Height (in) 69 Weight (lb) 296 Body Mass Index 43.7 Body Surface Area 2.4 Pain Level 2 Note: lc Last Documented: On 03/31/2023 10:00A M ; [facility] Results Includes: Results discussed during this encounter No Results Recorded For Specified Dates History of Present Illness Includes: History of Present Illness from this encounter GINNY Montes is a 37 year old female. - Allergy list reviewed - Problem list reviewed - Medication list reviewed Social History Description Last Updated Tobacco non-user 03/31/2023 Last Documented On 4 11:51AM ; [facility] No recent change in diet 03/31/2023 Last Documented On 4 11:51AM ; [facility] Not a current smoker. 03/31/2023 Last Documented On 4 11:51AM ; [facility] Caffeine use 01/05/2023 Last Documented On 4 9:57AM ; [facility] Not exercising regularly 01/05/2023 Last Documented On 4 9:57AM ; [facility] Not using alcohol 01/05/2023 Last Documented On 4 9:57AM ; [facility] Not using drugs 01/05/2023 Last Documented On 4 9:57AM ; [facility] Smoking Status Unknown Procedures and Surgical History Includes: Procedures from this encounter Procedures Code Diagnosis Performing Provider Service L ocation Service Date use of tobacco assessment performed 1000F Last Documented On 4 9:57AM ; [facility], [facility] review of medications documented 1160F Last Documented On 4 9:57AM ; [facility] [place] [id number] Last Documented On 4 9:57AM ; [facility] Surgical History Last Updated History of back surgery 01/05/2023 Last Documented On 4 9:57AM ; [facility] History of total hip replacement 023 Last Documented On 4 9:57AM ; [facility] Medical History Includes: Medical History addressed during this encounter No Medical History Recorded Family History Includes: Family History addressed during this encounter Description Last Updated Paternal history of diabetes mellitus Last Documented On 4 11:51AM ; [facility] Paternal history of family history of he art disease 03/31/2023 Last Documented On 4 11:51AM ; [facility], [facility] Review of Systems Includes: Review of Systems [...] Active Last Documented On 4 9:57AM ; [facility] Encounters Encounter Provider Location Date Check-In Time Check-Out Time Diagnosis Follow Up Andres Maldonado MD [facility] 4 9:55AM 10:13AM Overweight Insurance Includes: Active Insurance Policies Plan Name Member ID Group # Subscriber Relationship Effect bernice Dates 1 - [facility] [id number] 1 [id number] Rosa Montes Self 03/07/2017 - Unknown Clinical Notes Includes: Clinical Notes from this encounter * Progress note Date Encounter Last Documented by 03/31/2023 Follow Up Last documented on 04/13/2023; 11:51 AM, Andres Maldonado MD; [facility] Active Problems & Conditions - Lower Back Pain Chief Complaint The Chief Complaint is: Low right side back pain. Referred Here Referred by PCP. History of Present Illness Rosa Montes is a 37 year old female. - Allergy list reviewed - Problem list reviewed - Medication list reviewed Current Medication - Gabapentin 600 MG Oral Tablet 30 days, 0 refills - Methocarbamol 750 MG Oral Tablet 7 days, 0 refills - Naproxen 500 MG Oral Tablet 10 days, 0 refills Past Medical/Surgical History Surgical: - Back surgery - Total hip replacement Social History Not a current smoker. Current diet: No recent change in diet. Caffeine use: Caffeine use. Tobacco use: Tobacco non-user. Alcohol: Not using alcohol. Drug Use: Not using drugs. Habits: Not exercising regularly. Allergies - Penicillins Family History Paternal: Heart disease Diabetes mellitus Review Of Systems Systemic: Not feeling tired [...] allergic reaction. Physical Findings - Vitals taken 03/31/2023 09:59 am lc Height 69 in Weight 296 lbs Body Mass Index 43.7 kg/m2 Body Surface Area 2.4 m2 Pain Level [address] scan of the lumbar spine shows degenerative changes L5-S1 there may be a central disc protrusion MRI of the lumbar spine shows recurrent disc herniation at L5-S1 with some disc collapse Assessment - Overweight L5-S1 disc herniation Previous Tests Imaging: CT Scan: [facility] scan [facility]. Available previous imaging studies were reviewed Available previous history reviewed Counseling/Education - Lose weight Notes This dictation was done with voice recognition software and may contain errors and omissions. Patient is here for follow-up of her L5-S1 disc herniation. Feeling better. SPECT to work. Still in a home exercise program. I gave her a brochure to reinforce those. We will see her back as needed. Practice Management Use of tobacco assessment performed Review of medications documented. Care Team - Neeta Joel, FAMILY PRESERVATION CASEWORKER Health Reminders - Assess BMI satisfied 03/31/2023. - Assess Tobacco Use satisfied 03/31/2023. - Follow Up Plan BMI Management satisfied 03/31/2023.
--- OUTSIDE RECORDS SUMMARY | 2025-01-18 07:43 | XMS_ITS ---
Author Organization [facility] Address [address] [place] [address] Phone Care Team Providers Care Communications Editor Name Role Phone Joel JOSÉ, Neeta Unavailable Unavailable Joel GUSMAN, Andres Becerra Unavailable [phone] Problems Includes: Active, inactive, and resolved Problems All Visits Onset Date Resolved Date Provider Condition S tatus Lower Back Pain 02/08/2018 Andres Maldonado MD Act bernice Last Documented On 8 10:46AM ; [facility] Plan of Treatment Pending Tests Order Diagnosis Results Due Ordering P rovider Radiology - MRI MRI Lumbar Spine Overweight 01/19/23 Misha Dorman PA-C Last Documented On 3 2:11PM ; [facility] Instructions to patient Lose weight Last Documented On 4 9:57AM ; [facility] Lose weight Last Documented On 3 9:31AM ; [facility] Lose weight Last Documented On 3 9:52AM ; [facility] Instructions for patient see pcp for weight Last Documented On 9 9:22AM ; [facility] Lose weight Last Documented On 9 9:22AM ; [facility] Assessments Includes: Assessments for all patient encounters Findings Encounter Date Overweight Follow Up with Andres Maldonado MD 03/31/2023 Last Documented On 4 11:51AM ; [facility] Overweight Follow Up with Andres Maldonado MD 01/13/2023 Last Documented On 3 2:59PM ; [facility] Overweight Physician Specified with Sesar Dorman PA-C 01/05/2023 Last Documented On 3 2:11PM ; [facility] Instructions Includes: Instructions for all patient encounters Instructions to patient Lose weight Last Documented On 4 9:57AM ; [facility] Lose weight Last Documented On 3 9:31AM ; [facility] Lose weight Last Documented On 3 9:52AM ; [facility] Instructions for patient see pcp for weight Last Documented On 9 9:22AM ; [facility] Lose weight Last Documented On 9 9:22AM ; [facility] Medical Equipment - Implanted Devices Includes: Current and historical Devices No Medical Equipment Recorded Medications Includes: Current and historical Medications Current Medications (continue as prescribed) Gabapentin 600 MG Oral Tablet 01/03/2023 Provider: Neeta Maldonado NP Diagnosis: Last Documented On 3 9:51AM By Rosi Merida ; [facility] Methocarbamol 750 MG Oral Tablet 01/03/2023 Provider : Diagnosis: Last Documented On 3 9:51AM By Rosi Merida ; [facility] Naproxen 500 MG Oral Tablet 01/03/2023 Provider: Diagnosis: Last Documented On 3 9:51AM By Rosi Merida ; [facility] Past Medications on file Valium 5 MG Oral Tablet 01/05/2023 - 01/06/2023 Provid er: Andres Maldonado MD Diagnosis: take one hour prior to MRI. Do not drive on this Last Documented On 3 10:31AM By Andres Maldonado ; [facility] Percocet 5-325MG Oral Tablet 02/17/2018 - 03/31/2023 P gunnerder: Andres Maldonado MD Diagnosis: 1-2 po q 4-6h prn for pain surgery 02/22/18 Last Documented On 4 9:57AM By Rosi Merida ; [facility] Medications Administered Includes: Administered Medications in patient's chart No Administered Medications Recorded Results Includes: Results from 01/19/2024 through 01/18/2025 No Results Recorded For Specified Dates History of Present Illness History of Present Illness not supported for this document type No History of Present Illness Recorded Social History Description Last Updated Tobacco non-user 03/31/2023 Last Documented On 4 11:51AM ; [facility] No recent change in diet 03/31/2023 Last Documented On 4 11:51AM ; [facility] Not a current smoker. 03/31/2023 Last Documented On 4 11:51AM ; [facility] Caffeine use 01/05/2023 Last Documented On 3 2:11PM ; [facility] Not exercising regularly 01/05/2023 Last Documented On 3 2:11PM ; [facility] Not using alcohol 01/05/2023 Last Documented On 3 2:11PM ; [facility] Not using drugs 01/05/2023 Last Documented On 3 2:11PM ; [facility] No tobacco use 02/02/2018 Last Documented On 8 12:51PM ; [facility] Smoking status : Never smoker 02/02/2018 Last Documented On 8 12:51PM ; [facility] No recent change in diet 02/02/2018 Last Documented On 8 12:51PM ; [facility] Not a current smoker 02/02/2018 Last Documented On 8 12:51PM ; [facility] Procedures and Surgical History Surgical History Last Updated History of back surgery 01/05/2023 Last Documented On 3 2:11PM ; [facility] History of total hip replacement 023 Last Documented On 3 2:11PM ; [facility] Medical History Includes: Medical History in patient's chart No Medical History Recorded Family History Includes: Family History in patient's chart Description Last Updated Paternal history of diabetes mellitus Last Documented On 4 11:51AM ; [facility] Paternal history of family history of he art disease 03/31/2023 Last Documented On 4 11:51AM ; [facility] Diabetes mellitus mother 01/05/2023 Last Documented On 3 2:11PM ; [facility] Family history of heart disease mother ~ father 01/05/2023 Last Documented On 3 2:11PM ; [facility] Family history of diabetes mellitus 01/06 Last Documented On 8 12:51PM ; [facility] Review of Systems Review of Systems not supported for this document type No Review of Systems Recorded Mental Status Description No anxiety Functional Status No Functional Status Recorded Physical Exam Physical Exam not supported for this document type No Physical Exam Recorded Allergies Includes: Active, inactive, and resolved Allergies Substance Type Reaction Onset Date Resolved Date Statu s Penicillins Allergy 02/08/2018 Active Last Documented On 4 9:57AM ; [facility] Insurance Includes: Active Insurance Policies Plan Name Member ID Group # Subscriber Relationship Effect bernice Dates 1 - [facility] [id number] 1 [id number] Rosa Tripp 03/07/2017 - Unknown Clinical Notes Includes: Signed Clinical Notes starting from 02/18/2022 No Clinical Notes Recorded
--- OUTSIDE RECORDS SUMMARY | 2025-01-18 07:43 | XMS_ITS | Clinical Summary ---
Author Organization [facility] Address [address] [place] [address] Phone Care Team Providers Care Tower Loader Operator Name Role Phone Joel JOSÉ, Neeta Unavailable Unavailable Joel GUSMAN, Andres Becerra Unavailable [phone] Reason for Visit and Chief Complaint Epidural Steroid Injection Problems Includes: Problems addressed during this encounter and other active Problems All Visits Onset Date Resolved Date Provider Condition S tatus Lower Back Pain 02/08/2018 Andres Maldonado MD Act bernice Last Documented On 8 10:46AM ; [facility] Plan of Treatment No Plan of Treatment [...] On 3 9:51AM By Rosi Merida ; [facility] Methocarbamol 750 MG Oral Tablet 01/03/2023 Provider : Diagnosis: Last Documented On 3 9:51AM By Rosi Merida ; [facility] Naproxen 500 MG Oral Tablet 01/03/2023 Provider: Diagnosis: Last Documented On 3 9:51AM By Rosi Merida ; [facility] Medications Administered Includes: Administered Medications from this [...] Active Last Documented On 4 9:57AM ; [facility] Encounters Encounter Provider Location Date Check-In Time Check-Out Time Diagnosis Epidural Steroid Injection Jasen Coleman CRNA 02/23/2023 10:37AM 11:59PM Insurance Includes: Active Insurance Policies Plan Name Member ID Group # Subscriber Relationship Effect bernice Dates 1 - [facility] [id number] 1 [id number] Rosa Montes Self 03/07/2017 - Unknown Clinical Notes Includes: Clinical Notes from this encounter No Clinical Notes Recorded
--- OUTSIDE RECORDS SUMMARY | 2025-01-18 07:43 | XMS_ITS ---
Care Plan - [facility] Created on: January 18, 2025 Rosa Montes : 1985 Sex: Female Author Organization [facility] Address [address] [place] [address] Phone Care Team Providers Care Conference Specialist Name Role Phone Joel JOSÉ, Neeta Unavailable Unavailable Joel GUSMAN, Andres Becerra Unavailable [phone]
[2025-01-18 08:11] LABS: Hematocrit 42.3 % (37.0-47.0); Hemoglobin 14.6 g/dL (12.2-16.2); Immature Granulocytes % 0.3 %; Mean Corpuscular HGB Conc 34.5 g/dL (31.8-35.4); Mean Corpuscular Hemoglobin 30.1 pg (27.0-31.2); Mean Corpuscular Volume 87.2 fl (81-99); Nucleated Red Blood Cells % 0 %; Platelet Count 341 K/mm3 (142-424); Red Blood Count 4.85 M/mm3 (4.20-5.40); Red Cell Distribution Width-SD 39.0 fL; White Blood Count 7.8 K/mm3 (4.8-10.8)
[2025-01-18 08:41] LABS: Alanine Aminotransferase 41 U/L (12-78); Albumin Level 4.3 g/dl (3.5-5.0); Albumin/Globulin Ratio 1.4 (1.1-1.8); Alkaline Phosphatase 74 U/L (38-126); Anion Gap 10.1 mEq/L (5-15); Aspartate Amino Transferase 34 U/L (14-36); Bilirubin,Total 0.9 mg/dl (0.2-1.3); Blood Urea Nitrogen 10 mg/dl (7-17); Calcium 9.4 mg/dl (8.4-10.2); Carbon Dioxide 30 mmol/L (22.0-30.0); Chloride 99 mmol/L (98-107); Cholesterol 190 mg/dl (140-200); Creatinine,Serum 0.80 mg/dl (0.52-1.04); Estimated Glomerular Filt Rate 79 ml/min (>60); GFR (African American) 96 ML/MIN (>60); Globulin 3.0 g/dL (1.3-3.2); Glucose 117 mg/dl (74-100); HDL Cholesterol 43 mg/dl (40-60); Potassium 4.1 mmoL/L (3.5-5.1); Sodium 135 mmol/L (136-145); Total Protein,Serum 7.3 g/dl (6.3-8.2); Triglycerides 125 mg/dl (30-150)
== END 2025-01-18 23:59 | disposition home or self-care (01) ==
LOC: LAB 07:41
PROVIDERS: PCP Nurse Practitioner; Visit Provider Nurse Practitioner Obstetrics & Gynecology
DX: Z01.419 Encounter for gynecological examination (general) (routine) without abnormal findings (principal)
CPT/HCPCS: 36415; 80053; 80061; 85025